=== PATIENT | male | born 1960 | race Caucasian/White ===

== ENCOUNTER 2022-02-15 21:40 | Emergency (ER) | payer BC ==
[2022-02-15] MEDS ORDERED: Bupivacaine 0.5%/EPINEPHrine 1:200,000 1.8 ML Cartridge INJECT ONE (22:05)
== END 2022-02-15 23:37 | disposition home or self-care (01) ==
LOC: JP.ED 21:40
DX: L76.22 Postprocedural hemorrhage of skin and subcutaneous tissue following other procedure (principal); Z88.0 Allergy status to penicillin
CPT/HCPCS: 12011; 36415; 85027; 85610; 99282; J3490